=== PATIENT | female | born 1985 | race Native Hawaiian/Other Pacific Islander ===

== ENCOUNTER 2017-02-03 09:22 | Emergency (ER) | payer OTHER ==
[~2017-02-03] VITALS: Ht 165.1 cm; Wt 76.8 kg
[2017-02-03 10:58] LABS: PLATELET COUNT 232 K/uL (152-353)
[2017-02-03 11:03] LABS: POTASSIUM 3.9 mmol/L (3.6-5.2); SODIUM 141 mmol/L (136-145)
== END 2017-02-03 12:04 | disposition home or self-care (01) ==
LOC: ED 09:22
PROVIDERS: Family Medicine
DX: K29.00 Acute gastritis without bleeding (principal); M94.0 Chondrocostal junction syndrome [Tietze]; R00.1 Bradycardia, unspecified
CPT/HCPCS: 80053; 82150; 82550; 83690; 84484; 85027; 93005; 99283

== ENCOUNTER 2017-02-06 10:34 | Outpatient (CLI) | payer OTHER ==
[2017-02-06] MEDS ORDERED: METFTAB PO (22:37)
== END 2017-02-06 10:35 | disposition short-term general hospital (02) ==
LOC: AMB 10:34
DX: R55 Syncope and collapse (principal)
CPT/HCPCS: A0425; A0427

== ENCOUNTER 2017-02-06 10:35 | Observation (INO) | payer OTHER ==
[~2017-02-06] VITALS: Ht 165.1 cm; Wt 76.7 kg
[2017-02-06 10:35] VITALS: BP 100/78; TEMP 98.1
[2017-02-06 11:36] LABS: PLATELET COUNT 215 K/uL (152-353)
[2017-02-06 11:39] LABS: POTASSIUM 3.3 mmol/L (3.6-5.2); SODIUM 139 mmol/L (136-145)
[2017-02-06 17:27] VITALS: BP 116/76; TEMP 97.8; Ht 165.1 cm; Wt 76.7 kg
[2017-02-06 20:28] VITALS: BP 120/81; TEMP 98.6
[2017-02-06] MEDS ORDERED: METFTAB PO (22:37)
[2017-02-07 00:18] VITALS: BP 105/64; TEMP 98.4
[2017-02-07 04:00] VITALS: BP 95/63; TEMP 98.1
[2017-02-07 05:22] LABS: PLATELET COUNT 207 K/uL (152-353)
[2017-02-07 05:48] LABS: POTASSIUM 3.6 mmol/L (3.6-5.2); SODIUM 140 mmol/L (136-145)
[2017-02-07 08:00] VITALS: BP 109/72; TEMP 98.3
[2017-02-07 12:00] VITALS: BP 145/82; TEMP 98.2
--- NOTE | 2017-02-07 15:00 | NUR ---
IV D/C'd. NO REDNESS OR EDEMA OBSERVED. DISCHARGE INSTRUCTIONS SIGNED AND GIVEN. Pt. EXIT OUT OF FRONT AMBULATING.
== END 2017-02-07 15:00 | disposition home or self-care (01) ==
LOC: ED 10:35 → MED/SURG 14:10
PROVIDERS: Family Medicine
DX: R55 Syncope and collapse (principal); R11.2 Nausea with vomiting, unspecified; R42 Dizziness and giddiness; E11.9 Type 2 diabetes mellitus without complications
CPT/HCPCS: 36415; 36600; 80053; 80307; 81000; 81025; 82805; 82948; 83036; 83735; 84100; 84443; 84484; 85027; 93005; 96360; 96361; 96372; 96375; 99220; 99284; G0378; G0479; J3490